=== PATIENT | male | born 1995 | race American Indian/Alaskan Native ===

== ENCOUNTER 2018-05-07 19:25 | Emergency (ER) | payer OTHER ==
[2018-05-07 19:45] VITALS: BMI 34.8
[2018-05-07 19:46] VITALS: BP 120/72; PULSE 66; RESP 18; TEMP 98.8; O2SAT 97
[2018-05-07] MEDS ORDERED: TDAP Vaccine 0.5 mL Syr IM ONE (19:56)
[2018-05-07] MEDS ORDERED: Silver Sulfadiazine 1% Cream (25 gm) TP STA (19:56)
--- NOTE | 2018-05-07 20:03 | ED PDOC ---
Arrival/HPI - General Chief Complaint: Burn Time Seen by Provider: 05/07/18 19:55 Historian: Patient - History of Present Illness Narrative History of Present Illness (Text): 05/07/18 20:01 22 y/o male, no significant pmh, nkda, last tetanus over 10 years ago, c/o rt. foot burn by hot water about 1 hour ago. Pt. stated that he was boiling water, accidentally spilled the hot water on top of the rt. foot, sustained burn and blister quickly developed, no difficulty but has pain to put on the socks, no difficulty moving the rt. foot and 5 digits, no night sweat, no other rash, no dizziness, no other medical psychological complaints. Past Medical History - Provider Review Nursing Documentation Reviewed: Yes - Infectious Disease Hx of Infectious Diseases: None - Psychiatric Hx Substance Use: Yes - Suicidal Assessment Feels Threatened In Home Enviroment: No Family/Social History - Physician Review Nursing Documentation Reviewed: Yes Family/Social History: Unknown Family HX Smoking Status: Never Smoked Hx Alcohol Use: No Hx Substance Use: Yes Substance used: marijuana Allergies/Home Meds Allergies/Adverse Reactions: Allergies No Known Allergies Allergy (Verified 05/07/18 19:45) Review of Systems - Review of Systems Constitutional: absent: Fatigue, Fevers Eyes: absent: Vision Changes ENT: absent: Hearing Changes Respiratory: absent: SOB, Cough, Sputum Cardiovascular: absent: Chest Pain Gastrointestinal: absent: Abdominal Pain, Nausea, Vomiting Musculoskeletal: absent: Arthralgias, Back Pain, Myalgias Skin: Skin Lesions. absent: Rash, Pruritis, Laceration, Abscess, Ulcer, Cellulitis Neurological: absent: Headache, Dizziness Physical Exam Vital Signs Reviewed: Yes Vital Signs Temp Pulse Resp BP Pulse Ox 05/07/18 19:45 98.8 F 66 18 120/72 97 Temperature: Afebrile Blood Pressure: Normal Pulse: Regular Respiratory Rate: Normal Appearance: Positive for: Well-Appearing, Non-Toxic, Comfortable Pain Distress: Mild Mental Status: Positive for: Alert and Oriented X 3 - Systems Exam Head: Present: Atraumatic, Normocephalic Pupils: Present: PERRL Extroacular Muscles: Present: EOMI Conjunctiva: Present: Normal Mouth: Present: Moist Mucous Membranes Neck: Present: Normal Range of Motion Respiratory/Chest: Present: Clear to Auscultation, Good Air Exchange. No: Respiratory Distress, Accessory Muscle Use Cardiovascular: Present: Regular Rate and Rhythm, Normal S1, S2. No: Murmurs Abdomen: No: Tenderness, Distention, Peritoneal Signs Back: Present: Normal Inspection Upper Extremity: Present: Normal Inspection. No: Cyanosis, Edema Lower Extremity: Present: Normal Inspection, NORMAL PULSES, Other (Rt. foot: dorsum region visible approx. [id number] blister 2nd degree burn noted with no cellulitis or streaking, no ulcers, FROM without limitation, sensation intact, motor 5/5, +DPPT pulses, capillary refill< 2 seconds, ). No: Edema Neurological: Present: GCS=15, CN II-XII Intact, Speech Normal Skin: Present: Warm, Dry, Normal Color. No: Rashes Psychiatric: Present: Alert, Oriented x 3, Normal Insight, Normal Concentration Medical Decision Making ED Course and Treatment: 05/07/18 20:06 -motrin/tdap -wound irrigate with saline, silverdene cream, crutches -Discharge home with motrin, silverdene cream, crutches, avoid breaking the blister, follow up with your own pmd and study hall supervisor/ burn center within 2 days, return to the ER for any new or worsening signs or symptoms. [facility] Center at [facility] department in [place], [place] Located in: [facility] Address: [address] [place] [address] - Medication Orders Current Medication Orders: Discontinued Medications Ibuprofen (Motrin Tab) 600 mg PO STAT STA Stop: 05/07/18 19:57 Silver Sulfadiazine (Silvadene 1% 25 Gm) 2 gm TP STAT STA Stop: 05/07/18 19:57 Tetanus/Reduced Diphtheria/Acell Pertussis (Boostrix Vaccine Inj) 0.5 ml IM .ONCE ONE Stop: 05/07/18 19:57 - PA / SENIOR INFORMATION SECURITY ANALYST / Resident Statement MD/DO has reviewed & agrees with the documentation as recorded. Disposition/Present on Arrival - Present on Arrival Any Indicators Present on Arrival: No History of DVT/PE: No History of Uncontrolled Diabetes: No Urinary Catheter: No History of Decub. Ulcer: No History Surgical Site Infection Following: None - Disposition Have Diagnosis and Disposition been Completed?: Yes Diagnosis: Burn Disposition: HOME/ ROUTINE Disposition Time: 20:09 Patient Plan: Discharge Condition: GOOD Additional Instructions: -Discharge home with motrin, silverdene cream, crutches, avoid breaking the blister, follow up with your own pmd and study hall supervisor/ burn center within 2 days, return to the ER for any new or worsening signs or symptoms. [facility] at [facility] department in [place], [place] Located in: [facility] Address: [address] [place] [address], [place] [address] Prescriptions: Ibuprofen [Motrin Tab] 600 mg PO QID PRN #30 tab PRN Reason: Other Silver Sulfadiazine 1% 50 gm [Silvadene 1% 50 gm] 1 appful EXT BID #60 g Referrals: John Boucher MD [Staff Provider] - Follow up with primary [facility] [Outside] - Follow up with primary Forms: [facility] (Malay), WORK NOTE
== END 2018-05-07 20:25 | disposition home or self-care (01) ==
LOC: ED 19:25
DX: T25.221A Burn of second degree of right foot, initial encounter (principal); X12.XXXA Contact with other hot fluids, initial encounter; Y92.009 Unspecified place in unspecified non-institutional (private) residence as the place of occurrence of the external cause; Z23 Encounter for immunization